=== PATIENT | female | born 1995 | race Caucasian/White ===

== ENCOUNTER 2017-05-18 04:53 | Emergency (ER) | payer MEDICAID ==
[2017-05-18] MEDS: ACETAMINOPHEN 500 MG TAB PO (06:52)
[2017-05-18] MEDS: KETOROLAC 30 MG INJ IV (06:54)
[2017-05-18] MEDS: SOD CHLORIDE 0.9% 500 ML IV (07:14)
== END 2017-05-18 08:14 | disposition home or self-care (01) ==
LOC: FTE 04:53
DX: J10.1 Influenza due to other identified influenza virus with other respiratory manifestations (principal)
CPT/HCPCS: 87400; 96374; 99284-25

== ENCOUNTER 2018-02-16 12:39 | Emergency (ER) | payer MEDICAID ==
[2018-02-16 15:43] LABS: ADD MAN DIFF? NO
[2018-02-16 15:47] LABS: BASOPHILS % 0.2 % (0.0-2.0); EOSINOPHILS # 0.1 10^3/ul (0.0-0.5); EOSINOPHILS % 0.5 % (0.0-7.0); HEMATOCRIT 41.3 % (37.0-47.0); HEMOGLOBIN 13.5 g/dl (12.0-16.0); LYMPHOCYTES # 2.5 10^3/ul (0.8-2.9); LYMPHOCYTES % 23.1 % (15.0-51.0); MEAN CORPUSCULAR HEMOGLOBIN 31.7 pg (29.0-33.0); MEAN CORPUSCULAR HGB CONC 32.7 g/dl (32.0-37.0); MEAN CORPUSCULAR VOLUME 96.9 fl (82.0-101.0); MEAN PLATELET VOLUME 10.5 fl (7.4-10.4); MONOCYTE # 0.5 10^3/ul (0.3-0.9); MONOCYTES % 4.2 % (0.0-11.0); NEUTROPHIL # 7.7 10^3/ul (1.6-7.5); NEUTROPHILS % 71.5 % (39.0-77.0); PLATELET COUNT 262 10^3/UL (140-415); RED BLOOD COUNT 4.26 10^6/ul (4.20-5.40); RED CELL DISTRIBUTION WIDTH 12.8 % (11.5-14.5)
[2018-02-16 15:47] LABS: WHITE BLOOD COUNT 10.8 10^3/ul (4.8-10.8)
[2018-02-16 15:57] LABS: ADD UMIC YES; UR AMORPHOUS CRYSTAL FEW /HPF (NONE SEEN); UR ASCORBIC ACID 40 mg/dL (NEGATIVE); UR BACTERIA FEW /HPF (NONE SEEN); UR BILIRUBIN (Dip) NEGATIVE (NEGATIVE); UR BLOOD (Dip) NEGATIVE (NEGATIVE); UR CLARITY CLOUDY (CLEAR); UR COLOR YELLOW (YELLOW); UR GLUCOSE (Dip) NEGATIVE (NEGATIVE); UR KETONES (Dip) NEGATIVE (NEGATIVE); UR LEUKOCYTE ESTERASE (Dip) 3+ Leu/ul (NEGATIVE); UR MUCUS FEW /HPF (NONE SEEN); UR NITRITE (Dip) NEGATIVE (NEGATIVE); UR RBC 4 /HPF (0-5); UR SPECIFIC GRAVITY (Dip) 1.015 (1.003-1.030); UR SQUAMOUS EPITHELIAL CELL MANY /HPF (FEW); UR TOTAL PROTEIN (Dip) NEGATIVE (NEGATIVE); UR UROBILINOGEN (Dip) NEGATIVE (NEGATIVE); UR WBC 10 /HPF (0-5)
== END 2018-02-16 17:12 | disposition home or self-care (01) ==
LOC: FTE 17:12
DX: O23.41 Unspecified infection of urinary tract in pregnancy, first trimester (principal); R10.2 Pelvic and perineal pain; Z3A.01 Less than 8 weeks gestation of pregnancy
CPT/HCPCS: 36415; 76801; 76817; 81001; 84702; 85025; 86900; 86901; 87086; 99284-25

== ENCOUNTER → 2018-02-19 | Outpatient (CLI) | payer MEDICAID | END | disposition home or self-care (01) | LOC: U/S 15:15 | DX: O20.8 Other hemorrhage in early pregnancy (principal); Z3A.01 Less than 8 weeks gestation of pregnancy | CPT/HCPCS: 76801 ==

== ENCOUNTER 2018-10-04 13:44 | Inpatient (IN) | payer MEDICAID ==
[2018-10-04] MEDS ORDERED: CARBOPROST 250 MCG INJ IM ×2 (14:30→23:30)
[2018-10-04] MEDS ORDERED: OXYTOCIN 30 UNITS/LR 500 ML IV ×3 (14:30→23:30)
[2018-10-04] MEDS ORDERED: METHYLERGONOVINE 0.2 MG INJ IM ×2 (14:30→23:30)
[2018-10-04] MEDS ORDERED: MISOPROSTOL 200 MCG TAB PR ×2 (14:30→23:30)
[2018-10-04 14:36] LABS: ADD MAN DIFF? NO
[2018-10-04] MEDS: LACTATED RINGER'S 1,000 ML IV ×3 (14:36→23:05)
[2018-10-04 14:49] LABS: WHITE BLOOD COUNT 8.4 10^3/ul (4.8-10.8)
[2018-10-04 14:49] LABS: BASOPHILS % 0.4 % (0.0-2.0); EOSINOPHILS % 0.2 % (0.0-7.0); HEMATOCRIT 36.5 % (37.0-47.0); HEMOGLOBIN 11.5 g/dl (12.0-16.0); LYMPHOCYTES # 1.9 10^3/ul (0.8-2.9); LYMPHOCYTES % 22.2 % (15.0-51.0); MEAN CORPUSCULAR HEMOGLOBIN 31.6 pg (29.0-33.0); MEAN CORPUSCULAR HGB CONC 31.5 g/dl (32.0-37.0); MEAN CORPUSCULAR VOLUME 100.3 fl (82.0-101.0); MONOCYTE # 0.4 10^3/ul (0.3-0.9); MONOCYTES % 4.9 % (0.0-11.0); PLATELET COUNT 186 10^3/UL (140-415); RED BLOOD COUNT 3.64 10^6/ul (4.20-5.40)
[2018-10-04 14:58] LABS: INR 0.89; PROTIME 12.1 Sec (11.9-14.9); PT RATIO 0.9
[2018-10-04 14:59] LABS: PARTIAL THROMBOPLASTIN TIME 25.9 Sec (23.0-35.0)
[2018-10-04 15:39] LABS: HEPATITIS B SURFACE ANTIGEN NEGATIVE (NEGATIVE)
[2018-10-04 15:43] LABS: RAPID PLASMA REAGIN NONREACTIVE (NR)
[2018-10-04] MEDS: CEFAZOLIN 2 GM/50 ML (PMX) 50 ML IVPB (16:50)
[2018-10-04] MEDS ORDERED: morphine SULFATE/PF (10 MG/10 ML) INJ (16:51)
[2018-10-04] MEDS ORDERED: ONDANSETRON 4 MG INJ (16:51)
[2018-10-04] MEDS ORDERED: OXYTOCIN 10 UNIT INJ ×2 (16:51→17:44)
[2018-10-04] MEDS ORDERED: PHENYLephrine 10 MG INJ (17:00)
[2018-10-04] MEDS ORDERED: FENTAnyl 50 MCG/ML VIAL (17:36)
[2018-10-04] MEDS: AZITHROMYCIN 500MG/NS (PMX) 250 ML IVPB ×2 (18:30→20:06)
[2018-10-04] MEDS ORDERED: NALOXONE (0.4 MG/ML) INJ IV (19:00)
[2018-10-04] MEDS ORDERED: morphine 2 MG INJ IV (19:00)
[2018-10-04] MEDS: ACETAMINOPHEN 500 MG TAB PO (19:20)
[2018-10-04] MEDS: KETOROLAC 30 MG INJ IV (19:37)
[2018-10-04] MEDS ORDERED: LANOLIN HPA 1 PKT TOP (23:30)
[2018-10-04] MEDS ORDERED: HYDROCODONE/APAP (5/325) TAB PO (23:30)
[2018-10-04] MEDS ORDERED: NA PHOSPHATE/BIPHOS 133 ML ENEMA PR (23:30)
[2018-10-05] MEDS: CEFAZOLIN 2 GM/50 ML (PMX) 50 ML IVPB ×3 (00:55→15:34)
[2018-10-05] MEDS: CLINDAMYCIN 300 MG CAP PO ×4 (00:55→18:15)
[2018-10-05] MEDS: ONDANSETRON 4 MG INJ IV (01:21)
[2018-10-05 08:35] LABS: ADD MAN DIFF? NO
[2018-10-05] MEDS: SENNA/DOCUSATE NA (8.6MG/50MG) TAB PO ×2 (08:41→21:58)
[2018-10-05] MEDS: LACTATED RINGER'S 1,000 ML IV (08:42)
[2018-10-05 08:45] LABS: WHITE BLOOD COUNT 9.9 10^3/ul (4.8-10.8)
[2018-10-05 08:45] LABS: BASOPHILS % 0.2 % (0.0-2.0); EOSINOPHILS % 0.1 % (0.0-7.0); HEMATOCRIT 31.5 % (37.0-47.0); LYMPHOCYTES # 1.5 10^3/ul (0.8-2.9); LYMPHOCYTES % 15.1 % (15.0-51.0); MEAN CORPUSCULAR HEMOGLOBIN 32.1 pg (29.0-33.0); MEAN CORPUSCULAR HGB CONC 31.7 g/dl (32.0-37.0); MEAN PLATELET VOLUME 11.6 fl (7.4-10.4); MONOCYTE # 0.4 10^3/ul (0.3-0.9); MONOCYTES % 4.2 % (0.0-11.0); NEUTROPHIL # 7.9 10^3/ul (1.6-7.5); NEUTROPHILS % 79.7 % (39.0-77.0); PLATELET COUNT 177 10^3/UL (140-415); RED BLOOD COUNT 3.12 10^6/ul (4.20-5.40); RED CELL DISTRIBUTION WIDTH 15.1 % (11.5-14.5)
[2018-10-05] MEDS: KETOROLAC 30 MG INJ IV (12:15)
[2018-10-05] MEDS: DIPHENHYDRAMINE 50 MG INJ IV (14:01)
[2018-10-05] MEDS ORDERED: HYDROCODONE/APAP (5/325) TAB PO (18:59)
[2018-10-05] MEDS: IBUPROFEN 800 MG TAB PO (21:58)
[2018-10-06] MEDS: CLINDAMYCIN 300 MG CAP PO ×4 (00:54→17:59)
[2018-10-06] MEDS: BISACODYL 10 MG SUPP PR ×2 (01:30→01:36)
[2018-10-06] MEDS: OXYCODONE/ACETAMINOPHEN (5/325) TAB PO (02:14)
[2018-10-06] MEDS: IBUPROFEN 800 MG TAB PO ×3 (05:40→21:17)
[2018-10-06] MEDS: SENNA/DOCUSATE NA (8.6MG/50MG) TAB PO ×2 (08:38→21:16)
[2018-10-06] MEDS ORDERED: ACETAMINOPHEN 325 MG TAB PO (14:00)
[2018-10-07] MEDS: CLINDAMYCIN 300 MG CAP PO ×3 (00:24→11:59)
[2018-10-07] MEDS: IBUPROFEN 800 MG TAB PO (05:48)
[2018-10-07] MEDS: DIPHTH/TET/ACEL PERTUSS (ADULT) 0.5 ML VIAL IM* (09:00)
[2018-10-07] MEDS: MEASLES,MUMPS,RUBELLA VACCINE INJ SC* (09:00)
[2018-10-07] MEDS: SENNA/DOCUSATE NA (8.6MG/50MG) TAB PO (09:00)
== END 2018-10-07 13:05 | disposition home or self-care (01) | DRG 788 ==
LOC: L-D 13:44 → PP1 22:15
PROVIDERS: Obstetrics & Gynecology
PROC: 10D00Z1 Extraction of Products of Conception, Low, Open Approach (ICD-10-PCS; principal; 2018-10-04 15:30)
PROC: 0HB7XZZ Excision of Abdomen Skin, External Approach (ICD-10-PCS; 2018-10-04 15:30)
DX: O34.211 Maternal care for low transverse scar from previous cesarean delivery (principal); O99.214 Obesity complicating childbirth; E66.01 Morbid (severe) obesity due to excess calories; Z3A.39 39 weeks gestation of pregnancy; Z37.0 Single live birth
CPT/HCPCS: 85025; 85610; 85730; 86592; 86850; 86900; 86901; 87340; 99464